=== PATIENT | female | born 1985 | race Caucasian/White ===

== ENCOUNTER 2017-05-11 06:56 | Day surgery (SDC) | payer OTHER ==
[~2017-05-11 06:56] MED LIST: Midazolam 1 MG/ML 2 ML SDV ONE; Sodium Chloride 0.9% 10 ML Syringe FLUSH PRN; fentaNYL 100 MCG/2 ML SDV ONE
[2017-05-11] MEDS ORDERED: fentaNYL 100 MCG/2 ML SDV IV ONE (06:57)
[2017-05-11] MEDS ORDERED: Midazolam 1 MG/ML 2 ML SDV IV ONE (06:57)
[2017-05-11] MEDS: Dextrose 5%-0.45% NaCl 1,000 ML IV SCH (07:19)
[2017-05-11] MEDS: fentaNYL 100 MCG/2 ML SDV IV ONE ×4 (07:47→07:56)
[2017-05-11] MEDS: Midazolam 1 MG/ML 2 ML SDV IV ONE ×6 (07:48→07:52)
[2017-05-11 10:22] VITALS: BP 105/68
--- NOTE | 2017-05-11 12:45 | OR ---
DATE: 05/11/2017 PROCEDURE: Total colonoscopy, terminal ileoscopy, and NBI. INSTRUMENT USED: PCF-H180AL Olympus video colonoscope. PREMEDICATIONS: Fentanyl 150 mcg intravenous, Versed 4 mg intravenous, nasal O2 cannula. The procedure was done under pulse oximetry, BP recording, and cardiac exercise specialist. INDICATION: The patient with known clotting disorder. Had recent onset of abdominal pain, unexplained, and suggestive of ischemic colitis. Colonoscopic examination is done for evidence of any polypoid lesions and removal, and also for features of ischemic colitis, endoscopic hemostasis therapy if needed. DESCRIPTION OF PROCEDURE: Initial rectal exam was unremarkable. Rigid anoscopy was normal. The colonoscope was passed with ease up to and beyond the ileocecal junction to visualize the normal-appearing terminal ileum. NBI and magnification views were obtained, photographs were taken. Photographs were also taken of the normal-appearing cecum. No bleeding was noted from any of the visualized areas at the commencement of the examination. No stricture. No vascular ectasia. No large isolated ulcerations seen. No evidence of diffuse inflammatory bowel disease in the form of friability, contact bleeding, or ulcerations. No polyp or tumor mass identified. Probing the proximal sides of folds and flexures, using adequate distention and clearing up the stool material, withdrawal of the scope was made, cecum to rectum time over 6 minutes. No bleeding was noted from any of the visualized areas at the completion of examination. IMPRESSION: Normal study. The patient tolerated the procedure well. [facility] /[id number]
== END 2017-05-11 10:05 | disposition home or self-care (01) ==
LOC: DL.ENDO 06:56
PROVIDERS: ATTEND Internal Medicine Gastroenterology
DX: R10.9 Unspecified abdominal pain (principal); Z91.030 Bee allergy status; Z91.09 Other allergy status, other than to drugs and biological substances
CPT/HCPCS: 45378; J2250; J3010; J7042

== ENCOUNTER 2018-08-09 20:34 | Emergency (ER) | payer OTHER ==
[2018-08-09] MEDS ORDERED: Morphine 2 MG/ML Syringe IVPUSH ONE (20:50)
[2018-08-09] MEDS ORDERED: Ondansetron 4 MG/2 ML SDV IV ONE (20:50)
--- NOTE | 2018-08-09 20:53 | EDM.PDOC ---
ED HPI GENERAL MEDICAL PROBLEM - General Chief Complaint: Abdominal Pain Stated Complaint: SEVERE LOWER ABD PAIN Time Seen by Provider: 08/09/18 20:50 Source of Information: Reports: Patient History Limitations: Reports: No Limitations - History of Present Illness INITIAL COMMENTS - FREE TEXT/NARRATIVE: sudden onset low abd pain while sitting in yard drinking a beer. did eat a pancake prior. 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 Respiratory History: Reports: None Gastrointestinal History: Other Gastrointestinal History: RECTAL BLEEDING WITH BM'S Genitourinary History: Reports: None 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: Musculoskeletal History: Reports: None Neurological History: Reports: None Psychiatric History: Reports: None Endocrine/Metabolic History: Reports: Other (See Below) Other Endocrine/Metabolic History: MTHFR gene mutation Hematologic History: Reports: Anticoagulation Therapy Other Hematologic History: heterozygous factor V leiden mutation Immunologic History: Reports: None Oncologic (Cancer) History: Reports: None Dermatologic History: Reports: None - Infectious Disease History Infectious Disease History: Reports: Chicken Pox - Past Surgical History Head Surgeries/Procedures: Reports: None HEENT Surgical History: Reports: Adenoidectomy, Oral Surgery, Tonsillectomy Cardiovascular Surgical History: Reports: Other (See Below) Other Cardiovascular Surgeries/Procedures: STENT PLACED 2011 Respiratory Surgical History: Reports: None Female Surgical History: Reports: None Endocrine Surgical History: Reports: None Neurological Surgical History: Reports: None Musculoskeletal Surgical History: Reports: None Oncologic Surgical History: Reports: None Dermatological Surgical History: Reports: None Social & Family History - Family History Family Medical History: Noncontributory Oncologic: Reports: Colon Other Oncologic Family History: MOTHERS BROTHER - Tobacco Use Smoking Status *Q: Never Smoker - Caffeine Use Caffeine Use: Reports: None Other Caffeine Use: AVERAGE OF 10 OZ DAILY - Alcohol Use Date of Last Drink: 08/09/18 Time of Last Drink: 19:00 - Recreational Drug Use Recreational Drug Use: No ED ROS GENERAL - Review of Systems Review Of Systems: ROS reveals no pertinent complaints other than HPI. ED EXAM, GI/ABD - Physical Exam Exam: See Below Exam Limited By: No Limitations General Appearance: Alert, WD/WN, Mild Distress, Other (tearful). No: Active Emesis Ears: Hearing Grossly Normal Head: Atraumatic Neck: Non-Tender, Full Range of Motion Respiratory/Chest: No Respiratory Distress Cardiovascular: Regular Rate, Rhythm GI/Abdominal Exam: Tender, Other (suprapubic). No: Distended, Guarding, Rigid, Rebound Psychiatric: Tearful Skin Exam: Warm, Dry, Normal Color Lymphatic: No Adenopathy Course - Vital Signs Last Recorded V/S: Last Vital Signs Temp 36.3 C 08/09/18 20:40 Pulse 72 08/09/18 20:40 Resp 18 08/09/18 20:40 BP 109/64 08/09/18 20:40 Pulse Ox 100 08/09/18 20:40 - Orders/Labs/Meds Labs: Laboratory Tests 08/09/18 08/09/18 08/09/18 Range/Units 20:45 20:45 21:02 WBC 6.6 (5.0-10.0) 10^3/uL RBC 4.21 (4.2-5.4) 10^6/uL Hgb 12.8 (12.0-16.0) g/dL Hct 37.8 (37.0-47.0) % MCV 89.8 (80-100) fL MCH 30.4 (27.0-34.0) pg MCHC 33.9 (33.0-35.0) g/dL Plt Count 230 (150-450) 10^3/uL Neut % (Auto) 51.3 (42.2-75.2) % Lymph % (Auto) 38.8 (20.5-50.1) % [place] % (Auto) 8.1 H (2-8) % Eos % (Auto) 1.5 (1.0-3.0) % Baso % (Auto) 0.3 (0.0-1.0) % Sodium 136 (135-145) mmol/L Potassium 3.3 L (3.6-5.0) mmol/L Chloride 102 (101-111) mmol/L Carbon Dioxide 21.0 (21.0-31.0) mmol/L Anion Gap 16.3 BUN 13 (7-18) mg/dL Creatinine 0.7 (0.6-1.3) mg/dL Est Cr Clr Drug Dosing TNP Estimated GFR (MDRD) > 60 BUN/Creatinine Ratio 18.57 Glucose 95 (74-105) mg/dL Calcium 9.3 (8.4-10.2) mg/dl Total Bilirubin 1.0 (0.2-1.0) mg/dL AST 19 (10-42) IU/L ALT 13 (10-60) IU/L Alkaline Phosphatase 43 (42-121) IU/L Total Protein 7.0 (6.7-8.2) g/dl Albumin 4.4 (3.2-5.5) g/dl Globulin 2.6 Albumin/Globulin Ratio 1.69 Urine Color Yellow (YELLOW) Urine Appearance Clear (CLEAR) Urine pH 7.0 (5.0-9.0) Ur Specific [place] 1.020 (1.005-1.030) Urine Protein Negative (NEGATIVE) Urine Glucose (UA) Negative (NEGATIVE) Urine Ketones Trace H (NEGATIVE) Urine Occult Blood Negative (NEGATIVE) Urine Nitrite Negative (NEGATIVE) Urine Bilirubin Negative (NEGATIVE) Urine Urobilinogen 0.2 (0.2-1.0) mg/dL Ur Leukocyte Esterase Negative (NEGATIVE) Urine HCG, Qual 08/09/18 Range/Units 21:02 WBC (5.0-10.0) 10^3/uL RBC (4.2-5.4) 10^6/uL Hgb (12.0-16.0) g/dL Hct (37.0-47.0) % MCV (80-100) fL MCH (27.0-34.0) pg MCHC (33.0-35.0) g/dL Plt Count (150-450) 10^3/uL Neut % (Auto) (42.2-75.2) % Lymph % (Auto) (20.5-50.1) % [place] % (Auto) (2-8) % Eos % (Auto) (1.0-3.0) % Baso % (Auto) (0.0-1.0) % Sodium (135-145) mmol/L Potassium (3.6-5.0) mmol/L Chloride (101-111) mmol/L Carbon Dioxide (21.0-31.0) mmol/L Anion Gap BUN (7-18) mg/dL Creatinine (0.6-1.3) mg/dL Est Cr Clr Drug Dosing Estimated GFR (MDRD) BUN/Creatinine Ratio Glucose (74-105) mg/dL Calcium (8.4-10.2) mg/dl Total Bilirubin (0.2-1.0) mg/dL AST (10-42) IU/L ALT (10-60) IU/L Alkaline Phosphatase (42-121) IU/L Total Protein (6.7-8.2) g/dl Albumin (3.2-5.5) g/dl Globulin Albumin/Globulin Ratio Urine Color (YELLOW) Urine Appearance (CLEAR) Urine pH (5.0-9.0) Ur Specific [place] (1.005-1.030) Urine Protein (NEGATIVE) Urine Glucose (UA) (NEGATIVE) Urine Ketones (NEGATIVE) Urine Occult Blood (NEGATIVE) Urine Nitrite (NEGATIVE) Urine Bilirubin (NEGATIVE) Urine Urobilinogen (0.2-1.0) mg/dL Ur Leukocyte Esterase (NEGATIVE) Urine HCG, Qual Negative Meds: Medications Discontinued Medications Generic Name Dose Route Start Last Admin Trade Name Freq PRN Reason Stop Dose Admin Hydrocodone Bitart/Acetaminophen 1 tab 08/09/18 22:13 08/09/18 22:28 [place] 325-10 Mg PO 08/09/18 22:14 1 tab ONETIME ONE Administration Potassium Chloride 10 meq/ 100 mls @ 100 mls/hr 08/09/18 21:23 08/09/18 21:46 Premix IV 08/09/18 22:22 100 mls/hr ONETIME ONE Administration Sodium Chloride 1,000 mls @ 999 mls/hr 08/09/18 21:23 08/09/18 21:45 Normal Saline IV 08/09/18 22:23 999 mls/hr .BOLUS ONE Administration Iopamidol 75 ml 08/09/18 21:16 08/09/18 21:21 Isovue-300 (61%) IVPUSH 08/09/18 21:17 75 ml ONETIME ONE Administration Ketorolac Tromethamine 30 mg 08/09/18 21:25 08/09/18 21:43 Toradol IVPUSH 08/09/18 21:26 Not Given ONETIME ONE Ketorolac Tromethamine 15 mg 08/09/18 21:41 08/09/18 21:43 Toradol IVPUSH 08/09/18 21:42 15 mg ONETIME ONE Administration Morphine Sulfate 2 mg 08/09/18 20:50 08/09/18 20:55 Morphine IVPUSH 08/09/18 20:51 2 mg ONETIME ONE Administration Ondansetron HCl 4 mg 08/09/18 20:50 08/09/18 20:54 Zofran IV 08/09/18 20:51 4 mg ONETIME ONE Administration - Re-Assessments/Exams Free Text/Narrative Re-Assessment/Exam: 08/09/18 22:13 results discussed with pt who is somewhat better presently 08/09/18 23:44 re-exam; s/p IV = much better Departure - Departure Time of Disposition: 23:45 Disposition: Home, Self-Care 01 Condition: Good Clinical Impression: Cyst of ovary, right - Discharge Information Instructions: Ovarian Cyst, [id number] Referrals: PCP,None [Primary Care Provider] - Forms: ED Department Discharge Additional Instructions: 1) see family doctor tomorrow for OVARIAN CYSTE CONSULT 2) recheck if there is any change or concern
[2018-08-09 21:11] LABS: ANION GAP 16.3; CHLORIDE,CL 102 mmol/L (101-111); SODIUM,NA 136 mmol/L (135-145)
[2018-08-09] MEDS ORDERED: Iopamidol 612 MG/ML 75 ML Bottle IVPUSH ONE (21:16)
[2018-08-09] MEDS ORDERED: Sodium Chloride 0.9% 1,000 ML IV ONE (21:23)
[2018-08-09] MEDS ORDERED: Potassium Chloride 10 MEQ in Premix Bag 1 BAG IV ONE (21:23)
[2018-08-09] MEDS: Ketorolac 30 MG/ML SDV IVPUSH ONE ×2 (21:39→21:43)
[2018-08-09] MEDS ORDERED: Ketorolac 30 MG/ML SDV IVPUSH ONE (21:41)
[2018-08-09] MEDS ORDERED: Acetaminophen/HYDROcodone 325-10 MG Tab PO ONE (22:13)
[2018-08-10 00:04] VITALS: BP 123/67; PULSE 89
== END 2018-08-09 23:51 | disposition home or self-care (01) ==
LOC: DL.ED 20:34
DX: N83.201 Unspecified ovarian cyst, right side (principal); Z91.030 Bee allergy status; Z79.82 Long term (current) use of aspirin
CPT/HCPCS: 36415; 74177; 80053; 81003; 81025; 85025; 96365; 96375; 99284; A4217; A9270; J1885; J2270; J2405; J3480; J7030; Q9967

== ENCOUNTER → 2018-08-10 | Outpatient (CLI) | payer OTHER ==
--- NOTE | 2018-08-10 11:55 | US ---
Clinical history: 33-year-old afebrile female with right lower quadrant (RLQ) pain who was evaluated last night emergency department. Normal WBC. "1.9 cm diameter right ovarian cyst; diverticulosis sigmoid colon; small fluid cul-de-sac" reported on emergency CT exam, [facility]. Onset regular menses, yesterday. Persistent pain. Interpretation: Midline uterus normal size and anatomic configuration measures 7.87 cm L x 4.8 cm W x 4.3 cm AP diameter and has a normal 9 mm thin central endometrial "stripe". No sign of myometrial fibroid mass lesion, endometrial polypoid lesion, intra/extrauterine gestational sac or free fluid in the endometrial canal. Symmetric normal-appearing ovaries with physiologic cysts (largest cyst on the right 8 mm and the largest cyst on the left measures 8 x 10 mm). Good blood flow bilaterally the nonedematous ovaries i.e. no indication of ovarian torsion. No extraovarian adnexal mass lesions. Note: There is small amount of fluid in the posterior cul-de-sac right of midline (recent cyst rupture?). CONCLUSION: Normal uterus and ovaries. Small amount of fluid dependent, posterior cul-de-sac.
--- NOTE | 2018-08-10 12:46 | US ---
Clinical history: 33-year-old afebrile female with right lower quadrant (RLQ) pain who was evaluated last night emergency department. Normal WBC. "1.9 cm diameter right ovarian cyst; diverticulosis sigmoid colon; small fluid cul-de-sac" reported on emergency CT exam, [facility]. Onset regular menses, yesterday. Persistent pain. Interpretation: Midline uterus normal size and anatomic configuration measures 7.87 cm L x 4.8 cm W x 4.3 cm AP diameter and has a normal 9 mm thin central endometrial "stripe". No sign of myometrial fibroid mass lesion, endometrial polypoid lesion, intra/extrauterine gestational sac or free fluid in the endometrial canal. Symmetric normal-appearing ovaries with physiologic cysts (largest cyst on the right 8 mm and the largest cyst on the left measures 8 x 10 mm). Good blood flow bilaterally the nonedematous ovaries i.e. no indication of ovarian torsion. No extraovarian adnexal mass lesions. Note: There is small amount of fluid in the posterior cul-de-sac right of midline (recent cyst rupture?). CONCLUSION: Normal uterus and ovaries. Small amount of fluid dependent, posterior cul-de-sac.
== END ==
LOC: DL.US 10:19
PROVIDERS: ATTEND Family Medicine
DX: M25.551 Pain in right hip (principal); R10.2 Pelvic and perineal pain
CPT/HCPCS: 76830; 76857; 93975